=== PATIENT | female | born 1995 | race Caucasian/White ===

== ENCOUNTER 2017-11-18 03:13 | Emergency (ER) | payer SELFPAY ==
[2017-11-18 03:20] VITALS: O2SAT 98
[2017-11-18] MEDS ORDERED: Sodium Chloride 0.9% 1,000 ML IV ONE (03:34)
[2017-11-18 05:03] LABS: BASO # 0.1 K/uL (0.0-0.2); BASO % 0.6 % (0.0-2.0); EOS % 0.5 % (0.0-4.0); LYMPH # 1.3 K/uL (1.0-4.3); LYMPH % 16.1 % (20.0-40.0); MEAN CELL VOLUME 87.8 fl (81.0-99.0); MEAN CORPUSCULAR HEMOGLOBIN 29.7 pg (27.0-31.0); MEAN CORPUSCULAR HGB CONC 33.8 g/dL (33.0-37.0); MONO # 0.3 K/uL (0.0-0.8); MONO % 3.8 % (0.0-10.0); NEUT # 6.6 K/uL (1.8-7.0); RBC 4.7 Mil/uL (3.80-5.20); WHITE BLOOD COUNT 8.3 K/uL (4.8-10.8)
[2017-11-18 05:12] LABS: BLOOD UREA NITROGEN 11 mg/dl (7-17); CALCIUM 8.9 mg/dL (8.4-10.2); GFR NON-AFRICAN AMERICAN > 60
--- NOTE | 2017-11-18 05:30 | ED PDOC ---
HPI: Psych/Substance Abuse Time Seen by Provider: 11/18/17 03:33 Chief Complaint (Nursing): Alcohol Ingestion Chief Complaint (Provider): Alcohol Ingestion ED Caveat: Intoxicated History Per: EMS ([facility]) History/Exam Limitations: intoxication Additional Complaint(s): 22 year old female presents to the ED via [facility] for alcohol intoxication. As per EMS, they suspect she vomited before their arrival, and deny any reports of trauma. Patient is not expressing any complaints at present, however, HPI and ROS limited due to intoxicated state. PMD: unable to obtain Past Medical History Reviewed: Historical Data, Nursing Documentation, Vital Signs, Unable To Obtain Vital Signs: Last Vital Signs Temp 98.8 F 11/18/17 03:18 Pulse 66 11/18/17 03:18 Resp 18 11/18/17 03:18 BP 103/65 11/18/17 03:18 Pulse Ox 98 11/18/17 03:18 - Family History Family History: States: Unknown Family Hx - Social History Alcohol: Social - Allergies Allergies/Adverse Reactions: Allergies Allergy/AdvReac Type Severity Reaction Status Date / Time Unobtainable Allergy Verified 11/18/17 03:18 Review of Systems Review Of Systems: ROS cannot be obtained secondary to pt's inabilty to answer questions. Physical Exam - Reviewed Nursing Documentation Reviewed: Yes Vital Signs Reviewed: Yes - Physical Exam Comments: GENERAL APPEARANCE: Patient is somnolent, in no acute distress; intoxicated with the odor of alcohol on breath. SKIN: Warm, dry; (-) cyanosis HEAD: (-) scalp swelling, (-) scalp tenderness. EYES: (+) bilateral conjunctival injection ENMT: Mucous membranes moist. Airway patent: (-) stridor. NECK: Supple HEART AND CARDIOVASCULAR: (-) irregularity CHEST AND RESPIRATORY: (-) rales, (-) rhonchi, (-) wheezes; breath sounds equal. Respirations even and nonlabored. ABDOMEN: Soft, (-) distention, (-) tenderness, (-) guarding. NEURO AND PSYCH: Mental status as above. Affect: flat (-) facial asymmetry - Laboratory Results Result Diagrams: 11/18/17 04:59 11/18/17 04:59 - ECG O2 Sat by Pulse Oximetry: 98 (RA) Pulse Ox Interpretation: Normal Medical Decision Making Medical Decision Making: Time: 033 Initial Impression: alcohol intoxication Initial Plan: --Alcohol serum --BMP --CBC with differential --Normal saline IV --Zofran 4mg IVP --IV access 0515 CBC and BMP grossly unremarkable. Serum alcohol: 227 0600 Patient resting comfortably in ED. No acute distress noted. Patient was able to ambulate to restroom in ED. Accucheck: 109 On re-evaluation, patient now AAOx3 and reports improvement of symptoms. Gait steady in ED without assistance. VSS, stable for discharge. Lab/Diagnostic results d/w the patient in great detail. Diagnosis of alcohol intoxication d/w the patient. Based on history, exam and diagnostic results, plan will be for outpatient follow up. Patient was observed in ED for 5+ hours with no evidence of neurological deterioration. Patient instructed to follow-up with pmd / referral provided / the clinic in 1- 2 days without fail. Return to the emergency room at any time for any new or worsening symptoms. Patient states she fully agrees with and understands discharge instructions. States that she agrees with the plan and disposition. Verbalized and repeated discharge instructions and plan. I have given the patient opportunity to ask any additional questions. Scribe Attestation: Documented by Basilia Wong, acting as a scribe for Anita Manriquez PA-C. Provider Scribe Attestation: All medical record entries made by the Scribe were at my direction and personally dictated by me. I have reviewed the chart and agree that the record accurately reflects my personal performance of the history, physical exam, medical decision making, and the department course for this patient. I have also personally directed, reviewed, and agree with the discharge instructions and disposition. Disposition - Clinical Impression Clinical Impression: Alcohol intoxication - Patient ED Disposition Is Patient to be Admitted: No Counseled Patient/Family Regarding: Studies Performed, Diagnosis, Need For Followup - Disposition Referrals: [facility] [Outside] Disposition: Routine/Home Disposition Time: 08:15 Condition: STABLE Additional Instructions: The emergency medical care you received today was directed towards the acute presenting symptoms. If you were prescribed any medication, please fill it and give as directed. It may take several days for your symptoms to resolve. Return to the Emergency Department at any time if symptoms worsen, do not improve, or if any other problems arise. Please contact your doctor in 2 days for re-evaluation and follow up / or call one of the physicians/clinics you have been referred to that are listed on the Patient Visit Information form that is included in your discharge packet. Bring any paperwork you were given at discharge with you along with any medications to your follow up visit. Our treatment cannot replace ongoing medical care by a primary care provider (PCP) outside of the emergency department. Instructions: Alcohol Use - When Is Drinking a Problem?, Effects of Alcohol on Your Health Forms: [employer] (Maltese) Print Language: LAO - POA Present On Arrival: None Results - Lab Results Lab Results: 11/18/17 11/18/17 11/18/17 04:59 04:59 04:31 WBC 8.3 RBC 4.70 Hgb 14.0 Hct 41.3 MCV 87.8 MCH 29.7 MCHC 33.8 RDW 13.0 Plt Count 306 MPV 8.0 Neut % (Auto) 79.0 H Lymph % (Auto) 16.1 L [place] % (Auto) 3.8 Eos % (Auto) 0.5 Baso % (Auto) 0.6 Neut # (Auto) 6.6 Lymph # (Auto) 1.3 [place] # (Auto) 0.3 Eos # (Auto) 0.0 Baso # (Auto) 0.1 Sodium 143 Potassium Pending Chloride 105 Carbon Dioxide 26 Anion Gap Pending BUN 11 Creatinine 0.6 L Est GFR ( Amer) > 60 Est GFR (Non-Af Amer) > 60 POC Glucose (mg/dL) 109 Random Glucose 102 Calcium 8.9 Alcohol, Quantitative 227 H
[2017-11-18 08:41] VITALS: BP 122/65; PULSE 85; RESP 17; TEMP 97.6
== END 2017-11-18 08:15 | disposition home or self-care (01) ==
LOC: H.ER 03:13
DX: F10.129 Alcohol abuse with intoxication, unspecified (principal); Y90.8 Blood alcohol level of 240 mg/100 ml or more
CPT/HCPCS: 80048; 82948; 85025; 96374; 99283; G0480; J2405; J7040